=== PATIENT | male | born 1975 ===

== ENCOUNTER 2024-03-12 03:03 | Emergency (ER) | payer BC ==
[2024-03-12] MEDS ORDERED: NA CHLORIDE 0.9% 1,000 ML ONE (03:40)
[2024-03-12 03:51] LABS: Absolute Basophils 0.1 K/uL (0-0.5); Absolute Eosinophils 0.3 K/uL (0-0.5); Absolute Lymphocytes (CBC) 1.5 K/uL (0.7-4.9); Absolute Monocytes 1.4 K/uL (0.1-1.3); Absolute Neutrophil 4.3 K/uL (1.8-8.0); Basophils % 0.8 % (0-1.3); Eosinophils % 3.6 % (0-4.4); Hematocrit 40.1 % (39.6-49.0); Hemoglobin 13.1 g/dL (13.6-17.9); MCH 29.9 pg (27.0-35.0); MCHC 32.7 g/dL (32.0-36.0); MCV 91.4 fL (80-100); Monocytes % 18.3 % (3.3-12.3); Neutrophils % 57.3 % (41.7-73.7); Platelets 235 thou/uL (152-406); RBC Red Blood Cell Count 4.38 M/uL (4.33-5.43); Red Cell Distribution Width 13.9 % (12.1-15.2)
[2024-03-12 03:57] LABS: PT Prothrombin Time 11.9 SECONDS (9.4-12.5); Protime INR 1.06
[2024-03-12 03:59] LABS: Anion Gap 9.9 mEq/L (5.0-15.0); Potassium 3.9 mEq/L (3.5-5.1)
--- NOTE | 2024-03-12 06:15 | ER ---
Nurse's Notes [facility] Name: José Manuel Rodriguez Jr Age: 48 yrs Sex: Male : 1975 Arrival Date: 03/12/2024 Time: 03:03 Bed 3 Private MD: Diagnosis: Vertebrobasilar syndrome;Dizziness and giddiness Presentation: 03/12 03:12 Chief complaint: Patient states: "I don't feel right" since about midnight. Coronavirus cp4 screen: Client denies travel out of the [place] in the last 14 days. At this time, the client does not indicate any symptoms associated with coronavirus-19. Ebola Screen: Patient negative for fever greater than or equal to 101.5 degrees Fahrenheit, and additional compatible Ebola Virus Disease symptoms Patient denies exposure to infectious person. Patient denies travel to an Ebola-affected area in the 21 days before illness onset. No symptoms or risks identified at this time. Initial Sepsis Screen: Does the patient meet any 2 criteria? No. Patient's initial sepsis screen is negative. Does the patient have a suspected source of infection? No. Patient's initial sepsis screen is negative. Risk Assessment: Do you want to hurt yourself or someone else? Patient reports no desire to harm self or others. Onset of symptoms was March 12, 2024. 03:12 Method Of Arrival: Ambulatory cp4 03:12 Acuity: FAWAD 3 cp4 Triage Assessment: 03:13 General: Appears in no apparent distress. comfortable, Behavior is calm, cooperative, cp4 appropriate for age. Pain: Denies pain. EENT: No signs and/or symptoms were reported regarding the EENT system. Neuro: Level of Consciousness is awake, alert, obeys commands, Oriented to person, place, time, situation. Cardiovascular: No deficits noted. Respiratory: Airway is patent Respiratory effort is even, unlabored. GI: No signs and/or symptoms were reported involving the gastrointestinal system. : No signs and/or symptoms were reported regarding the genitourinary system. Derm: No signs and/or symptoms reported regarding the dermatologic system. Musculoskeletal: No signs and/or symptoms reported regarding the musculoskeletal system. Historical: - Allergies: 03:13 No Known Allergies; cp4 - Immunization history:: Adult Immunizations up to date. - Infectious Disease History:: Denies. - Social history:: Smoking status: Patient denies any tobacco usage or history of. - Family history:: not pertinent. - Hospitalizations: : No recent hospitalization is reported. Screenin:15 [facility] ED Fall Risk Assessment (Adult) History of falling in the last 3 months, cp4 including since admission No falls in past 3 months (0 pts) Confusion or Disorientation No (0 pts) Intoxicated or Sedated No (0 pts) Impaired Gait No (0 pts) Mobility Assist Device Used No (0 pt) Altered Elimination No (0 pt) Score/Fall Risk Level 0 - 2 = Low Risk Oriented to surroundings, Maintained a safe environment, Assessed \\T\\ reinforced patient's understanding of fall precautions, Hourly rounding (assess needs \\T\\ fall precautionary measures) done. Abuse screen: Denies threats or abuse. Nutritional screening: No deficits noted. Tuberculosis screening: No symptoms or risk factors identified. Assessment: 03:15 Reassessment: No changes from previously documented assessment. cp4 04:30 Reassessment: No changes from previously documented assessment. Patient and/or family cp4 updated on plan of care and expected duration. Pain level reassessed. Patient is alert, oriented x 3, equal unlabored respirations, skin warm/dry/pink. 05:30 Reassessment: No changes from previously documented assessment. Patient and/or family cp4 updated on plan of care and expected duration. Pain level reassessed. Patient is alert, oriented x 3, equal unlabored respirations, skin warm/dry/pink. Vital Signs: 03:12 BP 146 / 81; Pulse 85; Resp 18; Temp 98; Pulse Ox 98% ; cp4 05:51 BP 143 / 69; Pulse 83; Resp 18; Pulse Ox 100% ; cp4 06:33 BP 128 / 83; Pulse 80; Resp 18; Temp 98; Pulse Ox 99% ; cp4 NIH Stroke Scale Scores: 03:15 NIHSS Score: 0 cp4 ED Course: 03:11 Patient arrived in ED. cp4 03:12 Saran Patel MD is Attending Physician. rn 03:12 Susy Ramirez is Primary Nurse. cp4 03:13 Triage completed. cp4 03:13 Arm band placed on right wrist. Patient placed in an exam room, on a stretcher. cp4 03:15 Bed in low position. Call light in reach. Side rails up X2. cp4 03:44 Magnesium Sent. cp4 03:44 Protime (+inr) Sent. cp4 03:44 Ptt, Activated Sent. cp4 03:44 Basic Metabolic Panel Sent. cp4 03:44 CBC with Diff Sent. cp4 03:44 No provider procedures requiring assistance completed. Initial lab(s) drawn, by me, cp4 sent to lab. Inserted saline lock: 20 gauge in right antecubital area, using aseptic technique. Blood collected. Flushed with 10 mL NS. 04:[address] via stretcher. jb4 04:19 CT Head Brain wo Cont In Process Unspecified. EDMS 04:[address] In Process Unspecified. EDMS 04:19 Head angio In Process Unspecified. EDMS 04:24 Patient moved back from CT. jb4 06:14 Boy Cameron MD is Referral Physician. rn 06:34 Provided Education on: vertebrobasilar disease.. cp4 06:34 intact, bleeding controlled, No redness/swelling at site. Pressure dressing applied. cp4 Administered Medications: 03:44 Drug: NS 0.9% IV 1000 ml IV at 1000 ml once Route: IV; Rate: 1000 ml; Site: right cp4 antecubital; 04:54 Follow up: Response: No adverse reaction; IV Status: Completed infusion cp4 Medication: 03:15 VIS not applicable for this client. cp4 Outcome: 06:15 Discharge ordered by MD. rn 06:34 Discharged to home ambulatory, cp4 06:34 Condition: stable 06:34 Discharge instructions given to patient, Instructed on discharge instructions, follow up and referral plans. Demonstrated understanding of instructions, follow-up care, 06:35 Patient left the ED. cp4 NIH Stroke Scale - NIH Stroke Score Date: 03/12/2024 Time: 03:15 Total Score = 0 10. Dysarthria (speech clarity - read or repeat words) - 0(Normal) 11. Extinction and Inattention (visual/tactile/auditory/spatial/personal) - 0(No abnormality) 1a. Level of Consciousness (LOC) - 0(Alert) 1b. Level of Consciousness (LOC) (Month \\T\\ Age) - 0(Both) 1c. LOC Commands (Open \\T\\ Closes Eyes/Chief Controller Center) - 0(Both) 2. Best Gaze (Lateral Gaze Paresis) - 0(Normal) 3. Visual Field Loss - 0(No visual loss) 4. Facial Palsy - 0(Normal) 5a. Left Arm: Motor (10-second hold) - 0(No drift) 5b. Right Arm: Motor (10-second hold) - 0(No drift) 6a. Left Leg: Motor (5-second hold - always test supine) - 0(No drift) 6b. Right Leg: Motor (5-second hold - always test supine) - 0(No drift) 7. Limb Ataxia (finger/nose \\T\\ heel/brothers - test with eyes open) - 0(Absent) 8. Sensory Loss (pinprick arms/legs/face) - 0(Normal) 9. Best Language: Aphasia (description/naming/reading) - 0(No aphasia) Initials: cp4 Signatures: Dispatcher [employer] Saran Pablo MD MD rn Bryson, James, RN RN jb4 Susy Ramirez cp4
--- NOTE | 2024-03-12 06:15 | EDPHYS ---
Physician Documentation [facility] Name: José Manuel Rodriguez Jr Age: 48 yrs Sex: Male : 1975 Arrival Date: 03/12/2024 Time: 03:03 Bed 3 Private MD: ED Physician Saran Patel HPI: 03/12 03:49 This 48 yrs old Male presents to ER via Ambulatory with complaints of Doesn't Feel rn Right. 03:49 Patient reports since last night before midnight has not felt right. 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 Reports tingling to the back of his head, perioral region, and extremities. Feels generalized weakness but no focal weakness. No vision changes. Reports speech sounds okay but was having difficulty finding words. No chest pain or shortness of breath. No recent medication changes. No head injury or trauma. Reports that these episodes are intermittent, last for minutes and then go away. States has had them 3 other times and they resolve with IV fluids.. Onset: The symptoms/episode began/occurred last night. Severity of symptoms: At their worst the symptoms were mild in the emergency department the symptoms have improved. The patient has experienced similar episodes in the past. Historical: - Allergies: 03:13 No Known Allergies; cp4 - Immunization history:: Adult Immunizations up to date. - Infectious Disease History:: Denies. - Social history:: Smoking status: Patient denies any tobacco usage or history of. - Family history:: not pertinent. - Hospitalizations: : No recent hospitalization is reported. ROS: 03:49 Constitutional: Negative for fever, chills, and weight loss, Eyes: Negative for injury, rn pain, redness, and discharge, Neck: Negative for injury, pain, and swelling, Cardiovascular: Negative for chest pain, palpitations, and edema, Respiratory: Negative for shortness of breath, cough, wheezing, and pleuritic chest pain, Abdomen/GI: Negative for abdominal pain, nausea, vomiting, diarrhea, and constipation, Back: Negative for injury and pain, MS/Extremity: Negative for injury and deformity, Skin: Negative for injury, rash, and discoloration, Neuro: Negative for headache, weakness, and seizure, Exam: 03:49 Constitutional: This is a well developed, well nourished patient who is awake, alert, rn and in no acute distress. Ambulatory to room without difficulty or assistance. No gait abnormality noticed. Head/Face: Normocephalic, atraumatic. ENT: Dry mucous membranes Cardiovascular: Regular rate and rhythm. No pulse deficits. Respiratory: No increased work of breathing, no retractions or nasal flaring. Abdomen/GI: Soft, non-tender MS/ Extremity: Pulses equal, no cyanosis. Neurovascular intact. Full, normal range of motion. Equal circumference. Neuro: Awake and alert, GCS 15, oriented to person, place, time, and situation. Cranial nerves II-XII grossly intact. Motor strength 5/5 in all extremities. Sensory grossly intact. Cerebellar exam normal. Normal gait. Vital Signs: 03:12 BP 146 / 81; Pulse 85; Resp 18; Temp 98; Pulse Ox 98% ; cp4 05:51 BP 143 / 69; Pulse 83; Resp 18; Pulse Ox 100% ; cp4 06:33 BP 128 / 83; Pulse 80; Resp 18; Temp 98; Pulse Ox 99% ; cp4 NIH Stroke Scale Scores: 03:15 NIHSS Score: 0 cp4 MDM: 03:12 Patient medically screened. rn 04:58 ED course: Pt improved, back to baseline after IV fluids. . rn 06:11 Differential Diagnosis Dehydration, metabolic disorder, vertebrobasilar syndrome, rn stroke, TIA. Data reviewed: vital signs, nurses notes, lab test result(s), EKG, radiologic studies, and as a result, I will admit patient. Counseling: I had a detailed discussion with the patient and/or guardian regarding the historical points, exam findings, and any diagnostic results supporting the discharge/admit diagnosis, lab results, radiology results, the need for further work-up and treatment in the hospital, the need to transfer to another facility, for higher level of care, [facility] does not immediately have the required specialist. Response to treatment: the patient's symptoms have resolved after treatment, the patient's condition has returned to base line, the patient is now symptom free. 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 A vertebrobasilar syndrome would explain his intermittent symptoms and recurrent episodes that seem to improve with IV hydration and positioning. No acute infarct per radiology and no LVO. Had long discussion with patient and recommended transfer to [place] for further evaluation including MRI and neurological consultation, patient declines. Patient states he is at baseline and feels okay and this is consistent with his previous episodes. He does not want to be transferred at this time when he chooses to follow-up as an outpatient. Return precautions given and understood.. 03/12 03:21 Order name: CBC with Diff; Complete Time: 04:13 rn 03/12 03:21 Order name: Basic Metabolic Panel; Complete Time: 04:13 rn 03/12 03:21 Order name: Protime (+inr); Complete Time: 04:13 rn 03/12 03:21 Order name: Ptt, Activated; Complete Time: 04:13 rn 03/12 03:21 Order name: Magnesium; Complete Time: 04: rn 03/12 03:21 Order name: CT Head Brain wo Cont rn 03/12 03:21 Order name: Neck Angio CT rn 03/12 04:06 Order name: Head angio EDMS 03/12 03:21 Order name: IV Start; Complete Time: 03:44 rn Administered Medications: 03:44 Drug: NS 0.9% IV 1000 ml IV at 1000 ml once Route: IV; Rate: 1000 ml; Site: right cp4 antecubital; 04:54 Follow up: Response: No adverse reaction; IV Status: Completed infusion cp4 Disposition Summary: 03/12/24 06:15 Discharge Ordered Notes: Location: Home rn Problem: new rn Symptoms: have improved rn Condition: Stable rn Diagnosis - Vertebrobasilar syndrome rn - Dizziness and giddiness rn Followup: rn - With: Boy Cameron MD - When: 2 - 3 days - Reason: Further diagnostic work-up, Recheck today's complaints, Continuance of care, Re-evaluation by your physician Discharge Instructions: - Discharge Summary Sheet rn - Dizziness rn - Vertebrobasilar Disease rn Forms: - Medication Reconciliation Form rn - Antibiotic heel burnisher - Prescription Opioid Use rn - Patient Portal Instructions rn - Leadership Thank You Letter rn NIH Stroke Scale - NIH Stroke Score Date: 03/12/2024 Time: 03:15 Total Score = 0 10. Dysarthria (speech clarity - read or repeat words) - 0(Normal) 11. Extinction and Inattention (visual/tactile/auditory/spatial/personal) - 0(No abnormality) 1a. Level of Consciousness (LOC) - 0(Alert) 1b. Level of Consciousness (LOC) (Month \T\ Age) - 0(Both) 1c. LOC Commands (Open \T\ Closes Eyes/Shipping And Receiving Clerk) - 0(Both) 2. Best Gaze (Lateral Gaze Paresis) - 0(Normal) 3. Visual Field Loss - 0(No visual loss) 4. Facial Palsy - 0(Normal) 5a. Left Arm: Motor (10-second hold) - 0(No drift) 5b. Right Arm: Motor (10-second hold) - 0(No drift) 6a. Left Leg: Motor (5-second hold - always test supine) - 0(No drift) 6b. Right Leg: Motor (5-second hold - always test supine) - 0(No drift) 7. Limb Ataxia (finger/nose \T\ heel/brothers - test with eyes open) - 0(Absent) 8. Sensory Loss (pinprick arms/legs/face) - 0(Normal) 9. Best Language: Aphasia (description/naming/reading) - 0(No aphasia) Initials: cp4 Signatures: Dispatcher [employer] EDSaran Polo MD MD rn Potter, Christina cp4 Corrections: (The following items were deleted from the chart) 03:21 03:21 Head Brain Wo Cont+CT.RAD.BRZ ordered. EDMS EDMS 03:21 03:21 Neck Angio+CT.RAD.BRZ ordered. EDMS EDMS 03:21 03:21 CBC+H.LAB.BRZ ordered. EDMS EDMS 03:21 03:21 BASIC METABOLIC PANEL+C.LAB.BRZ ordered. EDMS EDMS 03:21 03:21 PROTIME (+INR)+COAG.LAB.BRZ ordered. EDMS EDMS 03:21 03:21 PTT, ACTIVATED+COAG.LAB.BRZ ordered. EDMS EDMS 03:21 03:21 MAGNESIUM+C.LAB.BRZ ordered. EDMS EDMS
[2024-03-12 06:45] VITALS: TEMP 98
[2024-03-12 07:11] VITALS: BP 128/83; O2SAT 99
--- NOTE | 2024-03-13 15:31 | RAD REPORT ---
EXAM DESCRIPTION: CT - Head angio - 03/13/2024 2:12 pm CLINICAL HISTORY: The patient is 48 years old and is Male; Numbness, tingling. TECHNIQUE: [place]/head and neck CT angiography protocol performed with intravenous contras t. Sagittal and coronal reformatted images were created and reviewed. This CT exam was performed using one or more of the following dose reduction techniques: automated exposure control, adjustmen t of the mA and/or kV according to patient size, and/or use of iterative reconstruction technique. MIP reconstructed images were created and reviewed. COMPARISON: None. FINDINGS: HEAD: RIGHT ANTERIOR CEREBRAL ARTERY: Unremarkable No occlusion or significant stenosis. Anterior com municating artery is present. No aneurysm. RIGHT MIDDLE CEREBRAL ARTERY: Unremarkable No occlusion or significant stenosis. No aneurysm. RIGHT POSTERIOR CEREBRAL ARTERY: Unremarkable No occlusion or significant stenosis. No aneurysm . RIGHT INTRACRANIAL INTERNAL CAROTID ARTERY: Unremarkable No significant stenosis. No dissection or occlusion. RIGHT INTRACRANIAL VERTEBRAL ARTERY: Unremarkable No significant stenosis. No dissection or occ lusion. LEFT ANTERIOR CEREBRAL ARTERY: Unremarkable No occlusion or significant stenosis. No aneurysm. LEFT MIDDLE CEREBRAL ARTERY: Unremarkable No occlusion or significant stenosis. No aneurysm. 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 No occlusion or significant stenosis. No aneurysm. LEFT INTRACRANIAL INTERNAL CAROTID ARTERY: Unremarkable No significant stenosis. No dissection or occlusion. LEFT INTRACRANIAL VERTEBRAL ARTERY: See below. BASILAR ARTERY: Dominant right vertebral artery, with solely perfuses the basilar artery, as well a s the bilateral PICA. Poor visualization of the left AICA and the superior cerebellar artery compared to the right. No occlusion or significant stenosis. No aneurysm. OTHER VASCULATURE: Unremarkable. BRAIN AND EXTRA-AXIAL SPACES: Low-lying cerebellar tonsils without overt herniation or Chiari malfo rmation. No extra-axial fluid collection. No intracranial hemorrhage. No midline shift. No transtentorial herniation. No focal lopez-white matter differentiation abnormality. NECK: RIGHT COMMON CAROTID ARTERY: Unremarkable No significant stenosis. No dissection or occlusion. RIGHT EXTRACRANIAL INTERNAL CAROTID ARTERY: Unremarkable No significant stenosis. No dissection or occlusion. RIGHT EXTERNAL CAROTID ARTERY: Unremarkable No occlusion. RIGHT EXTRACRANIAL VERTEBRAL ARTERY: Dominant. No significant stenosis. No dissection or occlusion. LEFT COMMON CAROTID ARTERY: Unremarkable No significant stenosis. No dissection or occlusion. LEFT EXTRACRANIAL INTERNAL CAROTID ARTERY: Unremarkable No significant stenosis. No dissection or occlusion. LEFT EXTERNAL CAROTID ARTERY: Unremarkable No occlusion. LEFT EXTRACRANIAL VERTEBRAL ARTERY: Markedly diminutive left vertebral artery, with loss of visuali zation of the vertebral artery at the base of the skull. No significant stenosis. AORTA: The aortic arch and origins of the supraaortic arteries are not included on the provided kate ges. LUNG APICES: Unremarkable as visualized. HEAD and NECK: BONES/JOINTS: Unremarkable No discrete lytic or blastic abnormalities. No fracture of the calvarium or visualized facial bones. SOFT TISSUES: Unremarkable CAROTID STENOSIS REFERENCE USING NASCET CRITERIA: % ICA stenosis = (1 - narrowest ICA diameter/diameter of distal cervical ICA) x 100. Mild - <50% stenosis. Moderate - 50-69% stenosis. Severe - 70-94% stenosis. Near occlusion - 95-99% stenosis. Occluded - 100% stenosis. IMPRESSION: Markedly diminutive left vertebral artery, with loss of visualization of the vertebral a rtery at the base of the skull. Poor visualization of the left AICA and the superior cerebellar art maría compared to the right. 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 Consi kannan further evaluation by brain MRI to evaluate for subtle/early posterior fossa ischemic changes. 2. Otherwise, no acute intracranial or extracranial vascular abnormality. Allowing for lack of visu alization of the aortic arch and origins of the supraaortic arteries, not other occlusions or high-gr olesya stenoses of the cervical or central intracranial arteries identified. 3. No acute intracranial abnormality on noncontrasted imaging. Dr. Zavala discussed these potentially critical findingsRoberto Mcdaniel MD via telephone at [facility] 06:32 hours EST on 03/12/2024. Electronically signed by: Brenton Zavala MD 03/12/2024 05:36 AM CDT RP Due to temporary technical issues with the PACS/Fluency reporting system, reports are being signed by the in house radiologists without review as a courtesy to insure prompt reporting. The interpreting radiologist is fully responsible for the content of the report.
--- NOTE | 2024-03-13 15:32 | RAD REPORT ---
EXAM DESCRIPTION: CT - Neck Angio - 03/13/2024 2:12 pm CLINICAL HISTORY: The patient is 48 years old and is Male; Numbness, tingling. TECHNIQUE: [place] [facility] [place]/head and neck CT angiography protocol performed with intravenous contras t. Sagittal and coronal reformatted images were created and reviewed. This CT exam was performed using one or more of the following dose reduction techniques: automated exposure control, adjustmen t of the mA and/or kV according to patient size, and/or use of iterative reconstruction technique. MIP reconstructed images were created and reviewed. COMPARISON: None. FINDINGS: HEAD: RIGHT ANTERIOR CEREBRAL ARTERY: Unremarkable No occlusion or significant stenosis. Anterior com municating artery is present. No aneurysm. RIGHT MIDDLE CEREBRAL ARTERY: Unremarkable No occlusion or significant stenosis. No aneurysm. RIGHT POSTERIOR CEREBRAL ARTERY: Unremarkable No occlusion or significant stenosis. No aneurysm . RIGHT INTRACRANIAL INTERNAL CAROTID ARTERY: Unremarkable No significant stenosis. No dissection or occlusion. RIGHT INTRACRANIAL VERTEBRAL ARTERY: Unremarkable No significant stenosis. No dissection or occ lusion. LEFT ANTERIOR CEREBRAL ARTERY: Unremarkable No occlusion or significant stenosis. No aneurysm. LEFT MIDDLE CEREBRAL ARTERY: Unremarkable No occlusion or significant stenosis. No aneurysm. LEFT POSTERIOR CEREBRAL ARTERY: origin of the left SENIOR INTERIOR DESIGNER. No occlusion or significant stenosis. No aneurysm. LEFT INTRACRANIAL INTERNAL CAROTID ARTERY: Unremarkable No significant stenosis. No dissection or occlusion. LEFT INTRACRANIAL VERTEBRAL ARTERY: See below. BASILAR ARTERY: Dominant right vertebral artery, with solely perfuses the basilar artery, as well a s the bilateral PICA. Poor visualization of the left AICA and the superior cerebellar artery compared to the right. No occlusion or significant stenosis. No aneurysm. OTHER VASCULATURE: Unremarkable. BRAIN AND EXTRA-AXIAL SPACES: Low-lying cerebellar tonsils without overt herniation or Chiari malfo rmation. No extra-axial fluid collection. No intracranial hemorrhage. No midline shift. No transtentorial herniation. No focal lopez-white matter differentiation abnormality. NECK: RIGHT COMMON CAROTID ARTERY: Unremarkable No significant stenosis. No dissection or occlusion. RIGHT EXTRACRANIAL INTERNAL CAROTID ARTERY: Unremarkable No significant stenosis. No dissection or occlusion. RIGHT EXTERNAL CAROTID ARTERY: Unremarkable No occlusion. RIGHT EXTRACRANIAL VERTEBRAL ARTERY: Dominant. No significant stenosis. No dissection or occlusion. LEFT COMMON CAROTID ARTERY: Unremarkable No significant stenosis. No dissection or occlusion. LEFT EXTRACRANIAL INTERNAL CAROTID ARTERY: Unremarkable No significant stenosis. No dissection or occlusion. LEFT EXTERNAL CAROTID ARTERY: Unremarkable No occlusion. LEFT EXTRACRANIAL VERTEBRAL ARTERY: Markedly diminutive left vertebral artery, with loss of visuali zation of the vertebral artery at the base of the skull. No significant stenosis. AORTA: The aortic arch and origins of the supraaortic arteries are not included on the provided kate ges. LUNG APICES: Unremarkable as visualized. HEAD and NECK: BONES/JOINTS: Unremarkable No discrete lytic or blastic abnormalities. No fracture of the calvarium or visualized facial bones. SOFT TISSUES: Unremarkable CAROTID STENOSIS REFERENCE USING NASCET CRITERIA: % ICA stenosis = (1 - narrowest ICA diameter/diameter of distal cervical ICA) x 100. Mild - <50% stenosis. Moderate - 50-69% stenosis. Severe - 70-94% stenosis. Near occlusion - 95-99% stenosis. Occluded - 100% stenosis. IMPRESSION: Markedly diminutive left vertebral artery, with loss of visualization of the vertebral a rtery at the base of the skull. Poor visualization of the left AICA and the superior cerebellar art maría compared to the right. origin of the left SENIOR INTERIOR DESIGNER. 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 Consi kannan further evaluation by brain MRI to evaluate for subtle/early posterior fossa ischemic changes. 2. Otherwise, no acute intracranial or extracranial vascular abnormality. Allowing for lack of visu alization of the aortic arch and origins of the supraaortic arteries, not other occlusions or high-gr olesya stenoses of the cervical or central intracranial arteries identified. 3. No acute intracranial abnormality on noncontrasted imaging. Dr. Zavala discussed these potentially critical findingsRoberto Mcdaniel MD via telephone at [facility] 06:32 hours EST on 03/12/2024. Electronically signed by: Brenton Zavala MD 03/12/2024 05:36 AM CDT RP Due to temporary technical issues with the PACS/Fluency reporting system, reports are being signed by the in house radiologists without review as a courtesy to insure prompt reporting. The interpreting radiologist is fully responsible for the content of the report.
--- NOTE | 2024-03-13 15:33 | RAD REPORT ---
EXAM DESCRIPTION: CT - Head Brain Wo Cont - 03/13/2024 2:[address] Angiography Head and Neck With Intravenous Contrast CLINICAL HISTORY: The patient is 48 years old and is Male; Numbness, tingling. TECHNIQUE: [place] [facility] [place]/head and neck CT angiography protocol performed with intravenous contras t. Sagittal and coronal reformatted images were created and reviewed. This CT exam was performed using one or more of the following dose reduction techniques: automated exposure control, adjustmen t of the mA and/or kV according to patient size, and/or use of iterative reconstruction technique. MIP reconstructed images were created and reviewed. COMPARISON: None. FINDINGS: HEAD: RIGHT ANTERIOR CEREBRAL ARTERY: Unremarkable No occlusion or significant stenosis. Anterior com municating artery is present. No aneurysm. RIGHT MIDDLE CEREBRAL ARTERY: Unremarkable No occlusion or significant stenosis. No aneurysm. RIGHT POSTERIOR CEREBRAL ARTERY: Unremarkable No occlusion or significant stenosis. No aneurysm . RIGHT INTRACRANIAL INTERNAL CAROTID ARTERY: Unremarkable No significant stenosis. No dissection or occlusion. RIGHT INTRACRANIAL VERTEBRAL ARTERY: Unremarkable No significant stenosis. No dissection or occ lusion. LEFT ANTERIOR CEREBRAL ARTERY: Unremarkable No occlusion or significant stenosis. No aneurysm. LEFT MIDDLE CEREBRAL ARTERY: Unremarkable No occlusion or significant stenosis. No aneurysm. LEFT POSTERIOR CEREBRAL ARTERY: origin of the left LOCOMOTIVE DRIVER. No occlusion or significant stenosis. No aneurysm. LEFT INTRACRANIAL INTERNAL CAROTID ARTERY: Unremarkable No significant stenosis. No dissection or occlusion. LEFT INTRACRANIAL VERTEBRAL ARTERY: See below. BASILAR ARTERY: Dominant right vertebral artery, with solely perfuses the basilar artery, as well a s the bilateral PICA. Poor visualization of the left AICA and the superior cerebellar artery compared to the right. No occlusion or significant stenosis. No aneurysm. OTHER VASCULATURE: Unremarkable. BRAIN AND EXTRA-AXIAL SPACES: Low-lying cerebellar tonsils without overt herniation or Chiari malfo rmation. No extra-axial fluid collection. No intracranial hemorrhage. No midline shift. No transtentorial herniation. No focal lopez-white matter differentiation abnormality. NECK: RIGHT COMMON CAROTID ARTERY: Unremarkable No significant stenosis. No dissection or occlusion. RIGHT EXTRACRANIAL INTERNAL CAROTID ARTERY: Unremarkable No significant stenosis. No dissection or occlusion. RIGHT EXTERNAL CAROTID ARTERY: Unremarkable No occlusion. RIGHT EXTRACRANIAL VERTEBRAL ARTERY: Dominant. No significant stenosis. No dissection or occlusion. LEFT COMMON CAROTID ARTERY: Unremarkable No significant stenosis. No dissection or occlusion. LEFT EXTRACRANIAL INTERNAL CAROTID ARTERY: Unremarkable No significant stenosis. No dissection or occlusion. LEFT EXTERNAL CAROTID ARTERY: Unremarkable No occlusion. LEFT EXTRACRANIAL VERTEBRAL ARTERY: Markedly diminutive left vertebral artery, with loss of visuali zation of the vertebral artery at the base of the skull. No significant stenosis. AORTA: The aortic arch and origins of the supraaortic arteries are not included on the provided kate ges. LUNG APICES: Unremarkable as visualized. HEAD and NECK: BONES/JOINTS: Unremarkable No discrete lytic or blastic abnormalities. No fracture of the calvarium or visualized facial bones. SOFT TISSUES: Unremarkable CAROTID STENOSIS REFERENCE USING NASCET CRITERIA: % ICA stenosis = (1 - narrowest ICA diameter/diameter of distal cervical ICA) x 100. Mild - <50% stenosis. Moderate - 50-69% stenosis. Severe - 70-94% stenosis. Near occlusion - 95-99% stenosis. Occluded - 100% stenosis. IMPRESSION: Markedly diminutive left vertebral artery, with loss of visualization of the vertebral a rtery at the base of the skull. Poor visualization of the left AICA and the superior cerebellar art maría compared to the right. origin of the left LOCOMOTIVE DRIVER. 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 Consi kannan further evaluation by brain MRI to evaluate for subtle/early posterior fossa ischemic changes. 2. Otherwise, no acute intracranial or extracranial vascular abnormality. Allowing for lack of visu alization of the aortic arch and origins of the supraaortic arteries, not other occlusions or high-gr olesya stenoses of the cervical or central intracranial arteries identified. 3. No acute intracranial abnormality on noncontrasted imaging. Dr. Zavala discussed these potentially critical findingsRoberto Mcdaniel MD via telephone at [facility] 06:32 hours EST on 03/12/2024. Electronically signed by: Brenton Zavala MD 03/12/2024 05:36 AM CDT RP Due to temporary technical issues with the PACS/Fluency reporting system, reports are being signed by the in house radiologists without review as a courtesy to insure prompt reporting. The interpreting radiologist is fully responsible for the content of the report.
== END 2024-03-12 06:35 | disposition home or self-care (01) ==
LOC: ER 03:03
DX: G45.0 Vertebro-basilar artery syndrome (principal)
CPT/HCPCS: 85025; 80048; 36415; 83735; 85610; 85730; 70450; 70496; 70498; 96360; 99285; Q9967; J7030